=== PATIENT | male | born 1965 | race Caucasian/White ===

== ENCOUNTER 2016-11-26 12:20 | Emergency (ER) | payer OTHER ==
[2016-11-26 13:10] VITALS: BP 144/90; PULSE 70; RESP 20; TEMP 97.7; O2SAT 95
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
== END 2016-11-26 13:40 | disposition home or self-care (01) ==
LOC: CED 12:20
DX: M54.32 Sciatica, left side (principal)
CPT/HCPCS: G0463-PO